=== PATIENT | female | born 1980 | race Caucasian/White ===

== ENCOUNTER 2017-02-17 22:48 | Emergency (ER) | payer OTHER ==
[~2017-02-17] VITALS: Ht 170.2 cm; Wt 65.0 kg
[2017-02-17 23:00] VITALS: Ht 170.2 cm; Wt 65.0 kg
[2017-02-17 23:24] LABS: ADD SCAN DIFF NO
[2017-02-17 23:28] LABS: BASOPHIL # 0.1 10^3/ul (0.0-0.1); BASOPHILS % 0.7 % (0.0-2.0); EOSINOPHILS # 0.1 10^3/ul (0.0-0.5); EOSINOPHILS % 1.6 % (0.0-7.0); HEMATOCRIT 39.5 % (37.0-47.0); LYMPHOCYTES # 2.7 10^3/ul (0.8-2.9); LYMPHOCYTES % 37.2 % (15.0-51.0); MEAN CORPUSCULAR HEMOGLOBIN 28.3 pg (29.0-33.0); MEAN CORPUSCULAR HGB CONC 32.9 g/dl (32.0-37.0); MEAN CORPUSCULAR VOLUME 86.1 fl (82.0-101.0); MEAN PLATELET VOLUME 10.5 fl (7.4-10.4); MONOCYTE # 0.4 10^3/ul (0.3-0.9); MONOCYTES % 5.7 % (0.0-11.0); NEUTROPHILS % 54.7 % (39.0-77.0); PLATELET COUNT 319 10^3/UL (140-415); RED BLOOD COUNT 4.59 10^6/ul (4.20-5.40); RED CELL DISTRIBUTION WIDTH 13.1 % (11.5-14.5); WHITE BLOOD COUNT 7.3 10^3/ul (4.8-10.8)
[2017-02-17 23:52] LABS: ALANINE AMINOTRANSFERASE 24 IU/L (13-69); ALBUMIN 4.9 g/dl (3.3-4.9); ALKALINE PHOSPHATASE 92 IU/L (42-121); ASPARTATE AMINO TRANSFERASE 18 IU/L (15-46)
--- NOTE | 2017-02-18 00:12 | ERD ---
ER Documentation Chief Complaint Date/Time DATE: 02/17/17 TIME: 23:36 Chief Complaint blood splashed in eye while taking IV out of patient. Flushed w/ water. 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 She was taking the patient's IV out when the blood splashed onto her face and eye. She immediately washed her face. She has no other complaints. ROS All systems reviewed and are negative except as per history of present illness. Allergies Allergies: Coded Allergies: No Known Drug Allergies (Verified Allergy, Unknown, 02/17/17) PMhx/Soc Medical and Surgical Hx: pt denies Medical Hx, pt denies Surgical Hx Hx Alcohol Use: Yes Hx Substance Use: No Hx Tobacco Use: No FmHx Family History: No diabetes Physical Exam Vitals Vital Signs Date Time Temp Pulse Resp B/P Pulse Ox O2 Delivery O2 Flow Rate FiO2 02/17/17 23:00 98.2 71 20 136/76 99 Physical Exam Const: Well-appearing, no apparent distress Head: Atraumatic Eyes: Normal Conjunctiva, no discharge, PERRLA, EOMI. Lids normal. No evidence of blood on eyes. ENT: Normal External Ears, Nose and Mouth. Neck: Full range of motion..~ No meningismus. Resp: Clear to auscultation bilaterally Cardio: Regular rate and rhythm, no murmurs Abd: Soft, non tender, non distended. Normal bowel sounds Skin: No petechiae or rashes Back: No midline or flank tenderness Ext: No cyanosis, or edema Neur: Awake and alert Psych: Normal Mood and Affect Result Diagram: 02/17/17 2246 Results 24 hrs Laboratory Tests Test 02/17/17 23:05 White Blood Count 7.310^3/ul Red Blood Count 4.5910^6/ul Hemoglobin 13.0g/dl Hematocrit 39.5% Mean Corpuscular Volume 86.1fl Mean Corpuscular Hemoglobin 28.3pg Mean Corpuscular Hemoglobin Concent 32.9g/dl Red Cell Distribution Width 13.1% Platelet Count 72569^3/UL Mean Platelet Volume 10.5fl Neutrophils % 54.7% Lymphocytes % 37.2% Monocytes % 5.7% Eosinophils % 1.6% Basophils % 0.7% Nucleated Red Blood Cells % 0.0/100WBC Neutrophils # 4.010^3/ul Lymphocytes # 2.710^3/ul Monocytes # 0.410^3/ul Eosinophils # 0.110^3/ul Basophils # 0.110^3/ul Nucleated Red Blood Cells # 0.010^3/ul Procedures/MDM Patient is presenting for body fluid exposure of blood in her eye. Anton lens was placed in the eye was irrigated. Fluid exposure workup was initiated on source patient and on the nurse. Patient has no complaints at this time. She has no signs of corneal abrasion on history. Patient will follow up with occupational health. Discharged in stable condition. No prophylaxis needed at this time. Departure Diagnosis: Primary Impression: Exposure to blood or body fluid Condition: Stable Patient Instructions: Body Fluid Exposure, Health Care Worker Referrals: NO PRIMARY,CARE PHYSICIAN (PCP) RAJNI VO MD Feb 17, 2017 23:46
== END 2017-02-18 00:11 | disposition home or self-care (01) ==
LOC: E/R 22:48 → FTE 02-18 00:11
DX: Z77.21 Contact with and (suspected) exposure to potentially hazardous body fluids (principal)
CPT/HCPCS: 80076; 85025; 86703; 86706; 86803; 87340; 99283